=== PATIENT | female | born 1990 | race Caucasian/White ===

== ENCOUNTER 2017-08-09 14:11 | Emergency (ER) | payer MEDICAID, OTHER ==
[~2017-08-09] VITALS: Ht 160 cm; Wt 42.6 kg
[2017-08-09 14:22] VITALS: BP 106/69
[2017-08-09] MEDS ORDERED: SILVER SULFADIAZINE 1 % TOPICAL CREAM 50GM TOP ONE (16:30)
== END 2017-08-09 16:39 | disposition home or self-care (01) ==
LOC: ER 14:11
DX: T22.00XA Burn of unspecified degree of shoulder and upper limb, except wrist and hand, unspecified site, initial encounter (principal); T20.00XA Burn of unspecified degree of head, face, and neck, unspecified site, initial encounter; Z88.0 Allergy status to penicillin; Z88.1 Allergy status to other antibiotic agents; Z88.8 Allergy status to other drugs, medicaments and biological substances; X08.8XXA Exposure to other specified smoke, fire and flames, initial encounter; Y93.89 Activity, other specified; Y92.89 Other specified places as the place of occurrence of the external cause; Y99.8 Other external cause status
CPT/HCPCS: 16000